=== PATIENT | male | born 1995 | race Caucasian/White ===

== ENCOUNTER 2017-05-16 02:38 | Emergency (ER) | payer OTHER ==
[~2017-05-16] VITALS: Ht 172.7 cm; Wt 59.0 kg
[2017-05-16 02:38] VITALS: BP_SYST 141
[2017-05-16 03:15] VITALS: BP_SYST 141
== END 2017-05-16 03:15 ==
LOC: SED 02:38
DX: H11.32 Conjunctival hemorrhage, left eye (principal); R03.0 Elevated blood-pressure reading, without diagnosis of hypertension
CPT/HCPCS: 99283